=== PATIENT | female | born 1955 | race Hispanic/Latino ===

== ENCOUNTER 2018-11-27 11:27 | Emergency (ER) | payer SELFPAY ==
[~2018-11-27 11:27] MED LIST: ISOVUE-370 76%-LOCM 1 ML ONE
[2018-11-27 12:10] LABS: Bacteria/HPF 4+ HPF (None Seen); RBC/HPF 0-3 HPF (0-3); WBC/HPF 21-50 HPF (0-3)
[2018-11-27 12:11] LABS: Bilirubin Small (Negative); Blood, Urine Large (Negative); Glucose, Urine (Dipstick) Negative (Negative); Leukocyte Negative (Negative); Nitrite Positive (Negative); Pathc Cast-AUWi Flag 13.19 (0-2.49); Protein, Urine (Dipstick) 100 mg/dL (Neg-Trace); Urobilinogen 0.2 mg/dL (0.2-1.0); pH, Urine 5.5 (5.0-9.0)
[2018-11-27 12:12] LABS: #Monocytes 0.8 thou/uL (0.11-0.59); #Neutrophils 11.2 thou/uL (1.40-6.50); %Basophils 0.1 % (0.0-1.0); %Eosinophils 0.2 % (0.0-10.0); %Lymphocytes 7.3 % (21.0-51.0); %Monocytes 5.9 % (0.0-10.0); %Neutrophils 86.4 % (42.0-75.0); Hemoglobin 14.9 g/dL (12.0-16.0); Mean Corpuscular HGB CONC 33.9 g/dL (32.0-36.0); Mean Corpuscular Hemoglobin 32.2 pg (27.0-31.0); Mean Platelet Volume 8.2 fL (7.4-10.4); Platelet Count 235 thou/uL (130-400); RBC Distribution Width 12.2 % (11.5-14.5); Red Blood Cell (RBC) Count 4.63 mill/uL (4.20-5.40); White Blood Cell (WBC) Count 12.9 thou/uL (4.8-10.8)
[2018-11-27 12:12] LABS: Clarity Hazy (Clear)
[2018-11-27 12:13] LABS: Specific Gravity, Urine 1.025 (1.002-1.036)
[2018-11-27 12:14] LABS: Squamous Epithelial 0-3 HPF (0-3)
[2018-11-27 12:15] LABS: Crystals/HPF 1+ CA OXALATE HPF (Negative); Hyaline Casts/LPF 7-10 HYALINE CAST LPF (0-3 Hyaline); Other Microscopic Description Less than 2 mL rec'd
[2018-11-27 12:32] LABS: ALT (SGPT) 40 U/L (8-55); AST (SGOT) 32 U/L (5-34); Alkaline Phosphatase 92 U/L (40-150); Anion Gap 15 mmol/L (10-20); BUN (Urea Nitrogen) 20 mg/dL (9.8-20.1); Bilirubin, Total 0.5 mg/dL (0.2-1.2); Calc. Creatinine Clearance 0 mL/min (70-130); Calcium 10.2 mg/dL (7.8-10.44); Carbon Dioxide 28 mmol/L (23-31); Chloride 102 mmol/L (98-107); Estimated GFR-MDRD 58; Globulin 3.5 g/dL (2.4-3.5); Glucose 144 mg/dL (80-115); Potassium 3.8 mmol/L (3.5-5.1); Protein, Total 8.5 g/dL (6.0-8.3); Sodium 141 mmol/L (136-145)
[2018-11-27] MEDS ORDERED: Ondansetron PF 4 MG/2 ML Vial ONE ×2 (12:47→12:54)
[2018-11-27] MEDS ORDERED: Ketorolac Tromethamine 30 MG/ML VIAL ONE ×2 (12:47→12:54)
--- NOTE | 2018-11-27 14:14 | CT ---
CT ABDOMEN AND PELVIS WITH CONTRAST: Date: 11/27/18 COMPARISON: None. HISTORY: Left lower quadrant cramping and abdominal pain. TECHNIQUE: Multiple contiguous axial images were obtained in a CT of the abdomen and pelvis with contrast. Coron al reformats were performed. FINDINGS: There is moderate left hydronephrosis and hydroureter. There is a 4 mm calcification in the left uret erovesical junction. No right-sided hydronephrosis is seen. No calcifications are seen in either kidn ey. There are well circumscribed, nonenhancing hypodensities in the liver measuring up to 9.0 cm in size, which represent cysts. The gallbladder, adrenal glands, spleen, and pancreas are unremarkable. No free air, free fluid, or stranding changes are seen in the abdomen or pelvis. The large and small bowel are unremarkable. The appendix is normal. There is a 5.9 cm cyst in the left adnexa which likely represents a left ovarian cyst/follicle. There is a calcification along the superior aspect of the uterus which may represent a calcified fibroid. No abdominal or pelvic lymphadenopathy seen. Degenerative changes are seen in the spine. The visualized inferior thorax and abdominal wall soft ti ssues are unremarkable. IMPRESSION: 1. Left distal ureteral calcification with moderate left hydronephrosis. 2. Left ovarian cyst/follicle. 3. Hepatic cysts. POS: [facility]
[2018-11-27] MEDS ORDERED: cefTRIAXone\\ROCEPHIN 2 GM VIAL ONE (14:24)
== END 2018-11-27 16:36 | disposition home or self-care (01) ==
LOC: ERS 11:27
DX: N20.0 Calculus of kidney (principal); N30.00 Acute cystitis without hematuria
CPT/HCPCS: 36415; 74177; 80053; 81003; 81015; 85025; 87804; 96365; 96375; J0696; J1885; J2405; Q9966

== ENCOUNTER 2018-11-30 22:04 | Inpatient (IN) | payer SELFPAY ==
[2018-11-30] MEDS ORDERED: Morphine 4 MG/ML VIAL ONE (22:31)
[2018-11-30] MEDS ORDERED: Ondansetron PF 4 MG/2 ML Vial ONE (22:31)
[2018-11-30 22:33] LABS: Bilirubin Negative (Negative); Blood, Urine Moderate (Negative); Clarity CLOUDY (Clear); Glucose, Urine (Dipstick) Negative (Negative); Leukocyte Negative (Negative); Nitrite Negative (Negative); Protein, Urine (Dipstick) Trace mg/dL (Neg-Trace); Specific Gravity, Urine 1.022 (1.002-1.036); Urobilinogen 0.2 mg/dL (0.2-1.0)
[2018-11-30 22:36] LABS: Bacteria/HPF None Seen HPF (None Seen); Hyaline Casts/LPF 4-6 HYALINE CAST LPF (0-3 Hyaline); Pathc Cast-AUWi Flag 1.76 (0-2.49)
[2018-11-30 22:44] LABS: #Eosinphils 0.1 thou/uL (0.0-0.7); #Lymphocytes 1.5 thou/uL (1.20-3.40); #Monocytes 0.6 thou/uL (0.11-0.59); #Neutrophils 10.3 thou/uL (1.40-6.50); %Basophils 0.3 % (0.0-1.0); %Eosinophils 0.4 % (0.0-10.0); %Lymphocytes 11.9 % (21.0-51.0); %Monocytes 4.8 % (0.0-10.0); %Neutrophils 82.6 % (42.0-75.0); Hemoglobin 13.3 g/dL (12.0-16.0); Mean Corpuscular HGB CONC 33.9 g/dL (32.0-36.0); Mean Corpuscular Hemoglobin 32.4 pg (27.0-31.0); Mean Corpuscular Volume 95.7 fL (78.0-98.0); Mean Platelet Volume 8.9 fL (7.4-10.4); Platelet Count 225 thou/uL (130-400); RBC Distribution Width 11.9 % (11.5-14.5); Red Blood Cell (RBC) Count 4.09 mill/uL (4.20-5.40); White Blood Cell (WBC) Count 12.5 thou/uL (4.8-10.8)
[2018-11-30] MEDS ORDERED: Acetaminophen 325 MG/10.15 ML UDCUP ONE (22:45)
[2018-11-30 22:48] LABS: Crystals/HPF 1+ CA OXALATE HPF (Negative)
[2018-11-30 23:04] LABS: ALT (SGPT) 33 U/L (8-55); AST (SGOT) 23 U/L (5-34); Albumin 4.2 g/dL (3.4-4.8); Alkaline Phosphatase 79 U/L (40-150); Anion Gap 18 mmol/L (10-20); BUN (Urea Nitrogen) 25 mg/dL (9.8-20.1); Bilirubin, Total 0.5 mg/dL (0.2-1.2); Calc. Creatinine Clearance 0 mL/min (70-130); Calcium 9.4 mg/dL (7.8-10.44); Carbon Dioxide 21 mmol/L (23-31); Chloride 103 mmol/L (98-107); Estimated GFR-MDRD 56; Globulin 2.9 g/dL (2.4-3.5); Glucose 166 mg/dL (80-115); Lipase 24 U/L (8-78); Potassium 3.6 mmol/L (3.5-5.1); Protein, Total 7.1 g/dL (6.0-8.3); Sodium 138 mmol/L (136-145)
--- NOTE | 2018-11-30 23:05 | CT ---
NONCONTRAST ENHANCED CT IMAGES ABDOMEN AND PELVIS 11/30/18 HISTORY: Abdominal pain. Noncontrast enhanced CT images of the abdomen and pelvis demonstrate the lung bases to be unremarkabl e. No evidence of free intraperitoneal air seen. The liver contains numerous hypodense areas most compatible with hepatic cysts. The spleen is unremar kable. The pancreas is unremarkable. The gallbladder is unremarkable. There is mild diffuse thickening of the colon involving the ascending, transverse and descending colo n compatible with colitis. A normal appendix is visualized. The small bowel is unremarkable. The right kidney is unremarkable. The left kidney demonstrates mild to moderate hydroureteronephrosis. The more distal aspect of the ur eter is more dilated. There is a 6.2 mm left distal ureteral calculus at the left ureterovesicular ju nction resulting in proximal left sided hydroureteronephrosis. There is a large left ovarian cyst or cystic lesion measuring up to 6.4 cm. IMPRESSION: 1. Obstructing distal left ureteral calculus. 2. Large left ovarian cyst or cystic lesion. 3. Extensive colonic thickening concerning for colitis. POS: [facility]
[2018-11-30] MEDS ORDERED: Piperacillin/Tazobactam 3.375 GM VIAL ONE (23:16)
[2018-11-30 23:24] LABS: Lactic Acid 1.2 mmol/L (0.5-2.2)
--- NOTE | 2018-11-30 23:45 | ULT ---
PELVIC ULTRASOUND 11/30/18 HISTORY: Evaluate for torsion. Multiple longitudinal and transverse images of the pelvis is obtained using a multihertz endovaginal transducer. Real time, color flow, and spectral waveform Doppler analysis demonstrates visualization of the right ovary which measures 3.0 x 1.9 x 2.0 cm. No evidence of right ovarian mass is seen. The left ovary contains several large cysts. Overall three dimensional measurement of the left ovary measures 6.0 x 4.1 x 6.7 cm. The largest of the left ovarian cyst measures 5.4 x 3.3 x 5.9 cm. Blood flow not visible in the left ovary. Findings concerning for possible ovarian torsion. The uterus measures 7.3 x 3.1 x 4.4 cm. The endometrium has double wall thickness of 1.2 cm. IMPRESSION: Large left ovarian cyst or cystic lesions. Blood flow not able to be documented in the left ovary. Ov acosta torsion cannot be excluded. POS: [facility]
--- NOTE | 2018-11-30 23:51 | PDOC.EVN ---
Event Note - Event Note Event Note: OBGYN Faculty Informal consult (phone call) with ED Resident at 2343 Patient in ED admitted to Medicine HPI: 63 yo postmenopusal patient with left lower quadrant pain. She was recently diagnosed with renal stones Thrusday. I was consulted as the patient was found to have a 5.3 cm left ovarian cyst on pelvic sono with unclear flow to left ovary. Medical condition complicated by diverticulitis and left renal stone at the ureterovesiclar junction. Past med HX: Neg Surg HX: BTL CBC with wbc 12, HCT 39; CMP wnl, GLUC 166; cr normal I was asked if surgery was to be considered for the left ovarian cyst with unclear flow. As the patient also has diverticulitis and is passing stone on the left, unclear which source is causing her discomfort at this time. As for the ovary, I recommended re-image in 24 hours if not better to see if pain resolves with the passing stone. As she is 63 yo with other conditions likely influencing the pain, I am unsure if laparaoscopy right now would be indicated. Ovarian torsion may occur at any age, but is less likely in postmenopusal women. Recommend reimage/sono if not better after stone passage.
[2018-12-01] MEDS ORDERED: Morphine 4 MG/ML VIAL ONE (00:04)
[2018-12-01] MEDS ORDERED: Ondansetron PF 4 MG/2 ML Vial ONE (00:05)
[2018-12-01] MEDS ORDERED: Ondansetron PF 4 MG/2 ML Vial IVP PRN (00:46)
[2018-12-01] MEDS ORDERED: Acetaminophen 325 MG TAB PO PRN (00:46)
[2018-12-01] MEDS ORDERED: Ondansetron ODT 4 MG TAB PO PRN (00:46)
[2018-12-01] MEDS ORDERED: cloNIDine 0.1 MG TAB PO PRN (00:51)
[2018-12-01] MEDS: Sodium Chloride 0.9% 1,000 ML IV SCH ×5 (02:12→18:02)
--- NOTE | 2018-12-01 02:33 | HP ---
CHIEF COMPLAINT: Abdominal pain. HISTORY OF PRESENT ILLNESS: This patient is a 63-year-old female, who presented here to the emergency department on 11/27/2018, complaining of left lower abdominal pain. The patient describes the pain as sharp and radiating to her back. At that time, the patient underwent a CT scan of the abdomen and pelvis, which revealed a left ureteral stone with hydronephrosis. She also had left ovarian cyst identified at 5.9 cm. Further workup indicated evidence of urinary tract infection with white count of 12.9, and urinalysis showing positive nitrites but negative leukocyte esterase, 21 to 50 white cells, 4+ bacteria, and calcium oxalate noted. The patient subsequently was discharged with oral antibiotics, specifically Cipro and Tylenol No. 3, Zofran, and ibuprofen. The patient reports that her pain initially got better but then became more severe. She states the pain was 20/10, but states it is better now after morphine and it is down to 10/10. She is incapable of standing upright because it exacerbates the pain. Bending forward a bit seems to help. She also reports that she feels like she needs to void constantly, but is unable to do so frequently. REVIEW OF SYSTEMS: She has had some chills. She is equivocal on fevers. She has had significant diarrhea that started prior to her visit on and she has had associated nausea and vomiting. All other systems reviewed and all pertinent positives and negatives noted in history of present illness. PAST MEDICAL HISTORY: None. The patient reports that she has followed her blood pressure randomly at the store and it has always been normal and she believes it is only high here today because of her pain. PAST SURGICAL HISTORY: Tubal ligation. FAMILY HISTORY: Diabetes and hypertension. SOCIAL HISTORY: The patient drinks socially a couple of times a week. No tobacco. She lives with her common-law . She is full code and her sisters would be her surrogate decision makers. CURRENT MEDICATIONS: The patient is on no chronic medications. She was again given, 1. Tylenol No. 3. 2. Cipro. 3. Zofran. 4. Ibuprofen, on . PHYSICAL EXAMINATION: VITAL SIGNS: Blood pressure was 165/100 up to 188/106, pulse 73, respirations 18, O2 saturation 95% on 2 L. She was previously 100% on room air on presentation. GENERAL APPEARANCE: Age-appropriate female, in no distress. She is a bit sedated after receiving morphine, but she is capable of having conversation. HEENT: Pupils are reactive and equal. She has no OP lesions. HEART: Regular rate and rhythm without murmurs, gallops, or rubs. LUNGS: Clear to auscultation bilaterally with good chest wall expansion and air exchange. HEART: Regular rate and rhythm. No murmurs, gallops, or rubs. NECK: She has no JVD. ABDOMEN: Soft, nondistended. Positive bowel sounds. She is tender in the left lower quadrant and left pelvic area with modest voluntary guarding. No rebound. EXTREMITIES: Have no cyanosis, clubbing, or edema. SKIN: Warm and dry. NEUROLOGIC: She appears to be fully intact. LABORATORY DATA AND DIAGNOSTIC STUDIES: White count 12.5, hemoglobin 13.3, and platelets 225. Sodium 138, potassium 3.6, chloride 103, CO2 of 21, BUN 25, creatinine 1.01, glucose 166. Urinalysis shows moderate blood, ketones, 7 to 10 red cells, 4 to 6 white cells, 11 to 20 epithelial cells, calcium oxalate crystals present as well as hyaline cast. Repeat CT abdomen and pelvis shows a persistent obstructing left ureteral calculus, left ovarian cyst at 6.2 cm. There is also mild diffuse thickening of the colon in the ascending, transverse, and descending regions, compatible with colitis. There is [id number] left hydronephrosis. It appears that the stone is at the left UVJ. Pelvic ultrasound shows several cystic lesions and blood flow to the left ovary is not visualized concerning for possible ovarian torsion. IMPRESSION AND PLAN: 1. Left lower quadrant abdominal pain with associated white count, nausea, vomiting, and diarrhea. Her workup reveals several potential possibilities including left ureteral stone with hydroureter, potential colitis, and left ovarian cyst with possible ovarian torsion. The patient has already been evaluated by Gynecology. We will treat the patient symptomatically for the pain, give p.r.n. antiemetics, and will cover with antibiotics, specifically we will continue the Zosyn that was started in the emergency department. 2. Left ureterolithiasis with left hydroureter. We will aggressively hydrate. Treat with pain medications. Start tamsulosin and consult Urology. 3. Possible colitis covering with Zosyn. Given the nature of the patient's symptoms, this seems to be a less likely source of her symptoms. 4. Left ovarian cyst with possible torsion. Gynecology recommends reimaging after the stone has passed or within 24 hours. 5. Elevated blood pressure. The patient does not carry a history of hypertension, but her blood pressure has been fairly elevated here. We will continue to watch closely now that her pain has been treated with the morphine and she seems to be getting better. We will give p.r.n. antihypertensive as well. Job ID: [id number] [facility]
[2018-12-01] MEDS: Morphine 2 MG/ML SYRINGE SLOW IVP PRN ×2 (03:08→07:24)
[2018-12-01] MEDS: Piperacillin/Tazobactam 3.375 GM in Sodium Chloride 0.9% 100 ML IVPB SCH ×4 (05:57→23:22)
[2018-12-01] MEDS: Tamsulosin HCl 0.4 MG CAP PO SCH (07:29)
[2018-12-01] MEDS: Enoxaparin Sodium 40 MG/0.4 ML SYRINGE SC SCH (07:29)
--- NOTE | 2018-12-01 08:29 | PDOC.EVN ---
Event Note - Event Note Event Note: Consult (OUTSIDE DELIVERER) 12/01/18 Patient seen at 0820 Requesting MD: Maikel Reason: Left Ov 6cm cyst HPI: Pleasant 63 yo postmenopuasal admitted this AM with LAP (please see my prior note). No past med HX..CT shows colitis globally and there is a 6mm left renal stone at ureteral vesical junction. Colitis is new finding from last eval which was last week Review of Systems: pos for LAP bilaterally, some left back pain Past Med: neg Past surg HX: neg meds: none Allergies: none PHYSICAL: VSS afebrile NAD abd soft and nonsurgical Pelvic differed Imagincm left ov cyst; 6mm stone left ureter, colitis Assessment and plan: Postmenopusal patient with various causes for pelvic pain Plan: 1. c;lose follow up of OV cyyst 2. Do not suspect torsion at this time clinically...but will follow SXS 3. Definitely needs outpatient follow up of ov cyst...this was reviewed with her case discussed with oncoming OBGYN
[2018-12-01] MEDS ORDERED: Diabetic Tussin 200 MG/10 ML UDCUP PO PRN (08:33)
[2018-12-01] MEDS ORDERED: HYDROcodone/Acetaminophen 5/325 mg Tablet PO PRN ×3 (08:33→09:19)
[2018-12-01] MEDS ORDERED: Bisacodyl 10 MG SUPP PR PRN (08:33)
[2018-12-01] MEDS ORDERED: Cepastat Lozenges 1 LOZ PO PRN (08:33)
[2018-12-01] MEDS ORDERED: Sodium Chloride 0.65% Nasal 44 ML BOT EA NARE PRN (08:33)
[2018-12-01] MEDS ORDERED: Eucerin (Mineral Oil/Petrolatum,White) 30 gm Jar TOP PRN (08:33)
[2018-12-01] MEDS ORDERED: Zolpidem Tartrate 5 MG TAB PO PRN (08:33)
[2018-12-01] MEDS ORDERED: Senokot S 8.6-50 MG TAB PO PRN (08:33)
[2018-12-01] MEDS ORDERED: hydrALAZINE 20 MG/ML VIAL SLOW IVP PRN (08:33)
[2018-12-01] MEDS ORDERED: Artificial Tears 18 DROP/0.9 ML EA EYE PRN (08:33)
[2018-12-01] MEDS ORDERED: Loratadine 10 MG TAB PO PRN (08:33)
[2018-12-01] MEDS ORDERED: Calcium Carbonate 500 MG ChewTAB PO PRN (08:33)
[2018-12-01] MEDS ORDERED: Loperamide HCl 2 MG CAP PO PRN (08:33)
[2018-12-01] MEDS ORDERED: Morphine 2 MG/ML SYRINGE SLOW IVP PRN (09:18)
[2018-12-01] MEDS ORDERED: Ketorolac Tromethamine 30 MG/ML VIAL IVP PRN (09:20)
[2018-12-01] MEDS: Saccharomyces boulardii 250 MG CAP PO SCH (09:26)
--- NOTE | 2018-12-01 10:36 | PDOC.PN ---
- Subjective Encounter Start Date: 12/01/18 Encounter Start Time: 07:20 -: old records requested/rev Patient seen and examined. No new complaints. No overnight events - Objective Resuscitation Status - Order Detail: 12/01/18 00:46 Resuscitation Status Routine Resuscitation Status: FULL: Full Resuscitation MAR Reviewed: Yes Vital Signs & Weight: Vital Signs (12 hours) Temp Pulse Resp BP Pulse Ox 12/01/18 10:00 76 20 127/68 100 12/01/18 09:37 99.1 F 77 15 149/85 H 94 L 12/01/18 07:47 98.9 F 72 20 168/81 H 96 12/01/18 03:45 85 20 178/92 H 93 L 12/01/18 02:00 98.1 F 91 24 H 189/86 H 94 L Weight Weight 189 lb 9.561 oz I&O: 11/30/18 12/01/18 12/02/18 06:59 06:59 06:59 Intake Total 525 Output Total 1000 Balance -475 Result Diagrams: 11/30/18 22:33 11/30/18 22:33 Radiology Reviewed by me: Yes EKG Reviewed by me: Yes Phys Exam - Physical Examination Constitutional: NAD HEENT: PERRLA, moist MMs, sclera anicteric Neck: no JVD, supple Respiratory: no wheezing, no rales, no rhonchi Cardiovascular: RRR, no significant murmur, no rub Gastrointestinal: soft, no distention, positive bowel sounds left flank pain Musculoskeletal: no edema, pulses present Neurological: non-focal, normal sensation, moves all 4 limbs Lymphatic: no nodes Psychiatric: normal affect, A&O x 3 Skin: no rash, normal turgor Dx/Plan (1) Acute colitis Code(s): K52.9 - NONINFECTIVE GASTROENTERITIS AND COLITIS, UNSPECIFIED Status : Acute (2) Hydroureteronephrosis Code(s): N13.30 - UNSPECIFIED HYDRONEPHROSIS Status: Acute (3) Left ureteral calculus Code(s): N20.1 - CALCULUS OF URETER Status: Acute (4) Ovarian cyst, left Code(s): N83.202 - UNSPECIFIED OVARIAN CYST, LEFT SIDE Status: Acute (5) Obesity (BMI 30.0-34.9) Code(s): E66.9 - OBESITY, UNSPECIFIED Status: Chronic - Plan cont current plan of care, plan discussed w/ family, continue antibiotics * send stool studies if diarrhoea * urology consulted * add toradol for pain control * change mrophin q 2 hourly * medication reviewed as below * symptomatic treatment * follow culture * will need cysto. Review of Systems - Review of Systems ENT: negative: Ear Pain, Ear Discharge, Nose Pain, Nose Discharge, Nose Congestion, Mouth Pain, Mouth Swelling, Throat Pain, Throat Swelling, Other Cardiovascular: negative: chest pain, palpitations, orthopnea, paroxysmal nocturnal dyspnea, edema, light headedness, other Gastrointestinal: negative: Nausea, Vomiting, Abdominal Pain, Diarrhea, Constipation, Melena, Hematochezia, Other Genitourinary: negative: Dysuria, Frequency, Incontinence, Hematuria, Retention , Other Musculoskeletal: Back Pain. negative: Neck Pain, Shoulder Pain, Arm Pain, Hand Pain, Leg Pain, Foot Pain, Other Skin: negative: Rash, Lesions, Ronaldo, Bruising, Other - Medications/Allergies Allergies/Adverse Reactions: Allergies Allergy/AdvReac Type Severity Reaction Status Date / Time No Known Allergies Allergy Unverified 12/01/18 00:50 Medications: Current Medications Acetaminophen (Tylenol) 650 mg PO Q4H PRN PRN Reason: Headache/Fever/Mild Pain (1-3) Hydrocodone Bitart/Acetaminophen ([place] 5/325) 1 tab PO Q4H PRN PRN Reason: Moderate Pain (4-6) Artificial Tears (Tears Naturale) 2 drop EA EYE PRN PRN PRN Reason: Dry Eyes Bisacodyl (Dulcolax) 10 mg HI DAILYPRN PRN PRN Reason: Constipation Calcium Carbonate (Tums) 1,000 mg PO Q4H PRN PRN Reason: Heartburn or Indigestion Clonidine (Catapres) 0.1 mg PO Q4H PRN PRN Reason: Hypertension Enoxaparin Sodium (Lovenox) 40 mg SC 0900 KRISTAL Last Admin: 12/01/18 07:29 Dose: Not Given Guaifenesin (Robitussin Sf) 200 mg PO Q4H PRN PRN Reason: Cough Hydralazine HCl (Apresoline) 10 mg SLOW IVP Q4H PRN PRN Reason: SBP > 180 and HR < 70 Sodium Chloride (Normal Saline 0.9%) 1,000 mls @ 150 mls/hr IV .Q6H40M [facility] Last Admin: 12/01/18 09:34 Dose: 1,000 mls Piperacillin Sod/Tazobactam (Sod 3.375 gm/ Sodium Chloride) 100 mls @ 200 mls/ hr IVPB Q6HR [facility] Last Admin: 12/01/18 05:57 Dose: 100 mls Ketorolac Tromethamine (Toradol) 15 mg IVP Q6H PRN PRN Reason: Pain Stop: 12/06/18 09:21 Last Admin: 12/01/18 09:29 Dose: 15 mg Loperamide HCl (Imodium) 2 mg PO PRN PRN PRN Reason: Diarrhea/Loose Stools Loratadine (Claritin) 10 mg PO DAILYPRN PRN PRN Reason: Sinus Symptoms Mineral Oil/White Petrolatum (Eucerin Cream) 0 gm TOP BIDPRN PRN PRN Reason: Dry Skin Morphine Sulfate (Morphine) 2 mg SLOW IVP Q2H PRN PRN Reason: Moderate to Severe Pain (6-10) Last Admin: 12/01/18 09:29 Dose: 2 mg Ondansetron HCl (Zofran Odt) 4 mg PO Q6H PRN PRN Reason: Nausea/Vomiting Ondansetron HCl (Zofran) 4 mg IVP Q6H PRN PRN Reason: Nausea/Vomiting Saccharomyces Boulardii (Florastor) 250 mg PO DAILY [facility] Last Admin: 12/01/18 09:26 Dose: Not Given Senna/Docusate Sodium (Senokot S) 2 tab PO BID PRN PRN Reason: Constipation Sodium Chloride (Flush - Normal Saline) 10 ml IVF Q12HR [facility] Last Admin: 12/01/18 07:29 Dose: Not Given Sodium Chloride (Flush - Normal Saline) 10 ml IVF PRN PRN PRN Reason: Saline Flush Sodium Chloride ([place] Nasal [place] 0.65%) 0 ml EA NARE QIDPRN PRN PRN Reason: Nasal Congestion Tamsulosin HCl (Flomax) 0.4 mg PO DAILY [facility] Last Admin: 12/01/18 07:29 Dose: Not Given Throat Lozenges (Cepastat Lozenges) 1 lazaro PO Q2H PRN PRN Reason: Sore Throat Zolpidem Tartrate (Ambien) 5 mg PO HSPRN PRN PRN Reason: Insomnia
[2018-12-01] MEDS: traMADol HCl 50 MG TAB PO PRN ×3 (13:45→20:42)
--- NOTE | 2018-12-01 16:52 | CON ---
DATE OF CONSULTATION: 12/01/2018 REASON FOR CONSULTATION: Consultation was requested for ureteral stone. HISTORY OF PRESENT ILLNESS: The patient is a 63-year-old female, who was seen on the and noted to have an obstructing ureteral stone with UTI, but sent out on antibiotics. I do not believe Urology was consulted at that time. She returned on the for further pain, nausea, and vomiting, but also had concerns for a left ovarian cyst versus left ovarian torsion, and Gynecology was involved, and have opted to follow up as an outpatient. Normally, she has frequency q.1-2 h. nocturia x1. She denies any hesitancy, weak stream, straining, incomplete emptying, or leakage. She does have some urgency as she is aging, but does not wear any pads or liners for any significant leakage. She has never had gross hematuria, prior kidney stones, and was not aware of any urinary tract infection when she was originally seen on the . She denies any cloudy or malodorous urine. She does not have any burning. She has had urine infections before, but greater than 20 years ago. When she was sent on the antibiotics, her symptoms did improve, when she was pain-free for approximately 1-2 days before the pain returned with back pain radiating down to the front and vice versa. PAST MEDICAL HISTORY: She denies any hypertension and her blood pressure has improved. PAST SURGICAL HISTORY: None other than a tubal. PAST MIGRATION AGENT HISTORY: Vaginal delivery x1 and the tubal. REVIEW OF SYSTEMS: She never had a colonoscopy nor a mammogram. She does do self exams. She had a Pap smear remotely, that was normal. She does not usually see a doctor. She does check her blood pressure at local stores and has been noted to be WNL. She has had subjective fevers and chills with nausea and vomiting as well as dry heaves. She denies any chest pain, shortness of breath, or cough. +diarrhea even before being given abx--this was new. SOCIAL HISTORY: She smoked socially for 5 or 10 years, but quit greater than 35 to 40 years ago. She does not use any recreational drugs. She drinks twice a week , usually use 1 or 2 at most of the time. MEDICATIONS: None daily, but when she was discharged on the , she was sent out on Cipro with Tylenol No. 3. ALLERGIES: NONE. FAMILY HISTORY: Mom at 62 of an aneurysm. Father in the 70s of heart attack. Neither had stones nor cancer. PHYSICAL EXAMINATION: GENERAL: She is comfortable in the bed. VITAL SIGNS: T-max 99.1, blood pressure 127/68 and previously up to 176/72, heart rate 76, and saturating 100% on room air. She had a liter output from the urine as last recorded. NECK: She has no JVD. HEENT: She has no scleral icterus. She has no jaundice. She has no diaphoresis. HEART: Regular rate and rhythm. No murmurs, gallops, or rubs. LUNGS: Clear to auscultation bilaterally. ABDOMEN: Soft, nondistended, and nontender with normoactive bowel sounds. She had no CVA tenderness on either side. She had no lower extremity edema. VULVA: Deferred at this time. LABORATORY EVALUATION: White count of 12.5, hemoglobin and hematocrit 13.3 and 39.2. BUN and creatinine 25 and 1.01. Urinalysis from the ; 4-6 wbc's, 7- 10 rbc's, no bacteria, 11-20 squamous cells with 1+ calcium oxalate crystals. Urinalysis from the showed 21-50 wbc's, 0-3 RBCs, 4+ bacteria 0-3 squamous cells with no culture sent, but she was sent out on Cipro. CT (11/27/18) with contrast was reviewed personally and revealed mild left hydronephrosis down to and 5 x 4 obstructing left UVJ stone that was . There was no right-sided stones. No right-sided hydronephrosis. The bladder appeared normal. CT (11/30/2018 without contrast, reviewed personally, revealed the same stone, but now NO contrast remaining, so confirming complete/persistent obstruction not present , but hydronephrosis was still present and slightly increased. ASSESSMENT: A 63-year-old female with an obstructing stone and urinary tract infection, who went out on antibiotics and returned due to pain. She also has a presumed adnexal cyst, confounding the issue, but it is likely incidental at this point. We reviewed how infected and obstructed stones can lead to systemic illness rapidly and in a severe fashion, but unfortunately, her infection has been adequately treated as she is only partially obstructed and no further contrast remains from the CT scan, but the stone unfortunately has not moved to all over that, so we reviewed doing ureteroscopy with holmium laser lithotripsy to get the stone out, leaving a stent placed temporarily, and the small risks that I would not be able to place a stent and require percutaneous nephrostomy tube instead, and reviewed how it is safe to proceed with stone intervention as opposed to just the stent. Given that her infection does appear to have been adequately treated, we also reviewed stone prevention and will review this more as an outpatient. Risks and benefits to the procedure were reviewed in detail. Unless she passes the stone overnight, we will plan to do this tomorrow morning and she should be n.p.o. and continue the antibiotics that she is on currently. Job ID: [id number] [facility]
[2018-12-02] MEDS: traMADol HCl 50 MG TAB PO PRN ×2 (00:15→20:13)
[2018-12-02] MEDS: Sodium Chloride 0.9% 1,000 ML IV SCH ×3 (03:29→18:04)
[2018-12-02 04:33] LABS: #Eosinphils 0.2 thou/uL (0.0-0.7); #Lymphocytes 2.7 thou/uL (1.20-3.40); #Monocytes 0.8 thou/uL (0.11-0.59); #Neutrophils 4.3 thou/uL (1.40-6.50); %Basophils 0.5 % (0.0-1.0); %Eosinophils 2.1 % (0.0-10.0); %Lymphocytes 33.3 % (21.0-51.0); %Monocytes 9.9 % (0.0-10.0); %Neutrophils 54.3 % (42.0-75.0); Hemoglobin 11.3 g/dL (12.0-16.0); Mean Corpuscular HGB CONC 32.9 g/dL (32.0-36.0); Mean Corpuscular Hemoglobin 32.1 pg (27.0-31.0); Mean Corpuscular Volume 97.4 fL (78.0-98.0); Mean Platelet Volume 8.8 fL (7.4-10.4); Platelet Count 188 thou/uL (130-400); RBC Distribution Width 12.1 % (11.5-14.5); Red Blood Cell (RBC) Count 3.53 mill/uL (4.20-5.40)
[2018-12-02 04:49] LABS: ALT (SGPT) 31 U/L (8-55); AST (SGOT) 23 U/L (5-34); Albumin 3.5 g/dL (3.4-4.8); Alkaline Phosphatase 67 U/L (40-150); Anion Gap 10 mmol/L (10-20); BUN (Urea Nitrogen) 12 mg/dL (9.8-20.1); Bilirubin, Total 0.6 mg/dL (0.2-1.2); Calc. Creatinine Clearance 88 mL/min (70-130); Carbon Dioxide 27 mmol/L (23-31); Chloride 105 mmol/L (98-107); Estimated GFR-MDRD 63; Globulin 2.3 g/dL (2.4-3.5); Glucose 103 mg/dL (80-115); Protein, Total 5.8 g/dL (6.0-8.3); Sodium 139 mmol/L (136-145)
[2018-12-02] MEDS: Piperacillin/Tazobactam 3.375 GM in Sodium Chloride 0.9% 100 ML IVPB SCH ×3 (05:42→17:13)
[2018-12-02] MEDS ORDERED: Ondansetron PF 4 MG/2 ML Vial ONE ×2 (09:42→14:09)
[2018-12-02] MEDS ORDERED: Morphine 2 MG/ML SYRINGE ONE (09:42)
[2018-12-02] MEDS ORDERED: Fentanyl 100 MCG/2 ML VIAL ONE (10:33)
[2018-12-02] MEDS ORDERED: Iothalamate Meglumine 60% 50 ML VIAL FS ONE ×2 (10:37→11:11)
[2018-12-02] MEDS: Saccharomyces boulardii 250 MG CAP PO SCH (11:39)
[2018-12-02] MEDS: Tamsulosin HCl 0.4 MG CAP PO SCH (11:39)
[2018-12-02] MEDS: Enoxaparin Sodium 40 MG/0.4 ML SYRINGE SC SCH (11:39)
[2018-12-02 11:59] LABS: Bilirubin Negative (Negative); Blood, Urine Moderate (Negative); Clarity CLOUDY (Clear); Glucose, Urine (Dipstick) Negative (Negative); Leukocyte Negative (Negative); Nitrite Negative (Negative); Protein, Urine (Dipstick) Negative (Neg-Trace); Specific Gravity, Urine 1.004 (1.002-1.036); Urobilinogen 0.2 mg/dL (0.2-1.0)
[2018-12-02] MEDS ORDERED: Ondansetron HCl/PF 4 MG/2 ML Vial IVP PRN (12:00)
[2018-12-02] MEDS ORDERED: Promethazine HCl 25 MG/ML VIAL IM PRN (12:00)
[2018-12-02] MEDS ORDERED: Promethazine HCl 25 MG/ML VIAL SLOW IVP PRN (12:00)
[2018-12-02 12:01] LABS: Bacteria/HPF None Seen HPF (None Seen); Hyaline Casts/LPF 0-3 HYALINE CAST LPF (0-3 Hyaline); Pathc Cast-AUWi Flag 0.13 (0-2.49); Squamous Epithelial 0-3 HPF (0-3); WBC/HPF 0-3 HPF (0-3)
--- NOTE | 2018-12-02 12:05 | RAD ---
RETROGRADE IVP: 2 views presented from OR. INDICATION: Left ureteral stone. Intraoperative imaging. FINDINGS/IMPRESSION: Both views show placement of a left ureteral stent. Final image shows the left ureteral double pigtai l stent in place. POS: [facility]
--- NOTE | 2018-12-02 13:49 | PDOC.PN ---
- Subjective Encounter Start Date: 12/02/18 Encounter Start Time: 10:30 Patient seen and examined. No new complaints. No overnight events - Objective Resuscitation Status - Order Detail: 12/01/18 00:46 Resuscitation Status Routine Resuscitation Status: FULL: Full Resuscitation MAR Reviewed: Yes Vital Signs & Weight: Vital Signs (12 hours) Temp Pulse Resp BP Pulse Ox 12/02/18 13:00 98.0 F 68 18 136/82 91 L 12/02/18 12:30 97.7 F 96 16 125/87 96 12/02/18 06:55 98.2 F 77 16 145/80 H 92 L 12/02/18 03:26 98.5 F 68 16 124/63 94 L Weight Weight 189 lb 9.561 oz I&O: 12/01/18 12/02/18 12/03/18 06:59 06:59 06:59 Intake Total 525 Output Total 1000 900 Balance -475 -900 Result Diagrams: 12/02/18 04:05 12/02/18 04:05 Phys Exam - Physical Examination Constitutional: NAD HEENT: PERRLA, moist MMs, sclera anicteric Neck: no JVD, supple Respiratory: no wheezing, no rales, no rhonchi Cardiovascular: RRR, no significant murmur, no rub Gastrointestinal: soft, non-tender, no distention, positive bowel sounds Musculoskeletal: no edema, pulses present Neurological: non-focal, normal sensation Lymphatic: no nodes Psychiatric: normal affect, A&O x 3 Skin: no rash, normal turgor Dx/Plan (1) Acute colitis Code(s): K52.9 - NONINFECTIVE GASTROENTERITIS AND COLITIS, UNSPECIFIED Status : Acute (2) Hydroureteronephrosis Code(s): N13.30 - UNSPECIFIED HYDRONEPHROSIS Status: Acute (3) Left ureteral calculus Code(s): N20.1 - CALCULUS OF URETER Status: Acute (4) Ovarian cyst, left Code(s): N83.202 - UNSPECIFIED OVARIAN CYST, LEFT SIDE Status: Acute (5) Obesity (BMI 30.0-34.9) Code(s): E66.9 - OBESITY, UNSPECIFIED Status: Chronic - Plan cont current plan of care, plan discussed w/ family, continue antibiotics * continue zosyn * continue IVF at 100 ml per hour * continue flomax * pain controlled * today cystoscopy * medication reviewed as below * symptomatic treatment * expecting discharge tomorrow. Review of Systems - Review of Systems ENT: negative: Ear Pain, Ear Discharge, Nose Pain, Nose Discharge, Nose Congestion, Mouth Pain, Mouth Swelling, Throat Pain, Throat Swelling, Other Respiratory: negative: Cough, Dry, Shortness of Breath, Hemoptysis, SOB with Excertion, Pleuritic Pain, Sputum, Wheezing Cardiovascular: negative: chest pain, palpitations, orthopnea, paroxysmal nocturnal dyspnea, edema, light headedness, other Gastrointestinal: negative: Nausea, Vomiting, Abdominal Pain, Diarrhea, Constipation, Melena, Hematochezia, Other Genitourinary: negative: Dysuria, Frequency, Incontinence, Hematuria, Retention , Other Musculoskeletal: negative: Neck Pain, Shoulder Pain, Arm Pain, Back Pain, Hand Pain, Leg Pain, Foot Pain, Other - Medications/Allergies Allergies/Adverse Reactions: Allergies Allergy/AdvReac Type Severity Reaction Status Date / Time No Known Allergies Allergy Unverified 12/01/18 00:50 Medications: Current Medications Acetaminophen (Tylenol) 650 mg PO Q4H PRN PRN Reason: Headache/Fever/Mild Pain (1-3) Artificial Tears (Tears Naturale) 2 drop EA EYE PRN PRN PRN Reason: Dry Eyes Bisacodyl (Dulcolax) 10 mg MD DAILYPRN PRN PRN Reason: Constipation Calcium Carbonate (Tums) 1,000 mg PO Q4H PRN PRN Reason: Heartburn or Indigestion Clonidine (Catapres) 0.1 mg PO Q4H PRN PRN Reason: Hypertension Enoxaparin Sodium (Lovenox) 40 mg SC 0900 [facility] Last Admin: 12/02/18 11:39 Dose: Not Given Guaifenesin (Robitussin Sf) 200 mg PO Q4H PRN PRN Reason: Cough Hydralazine HCl (Apresoline) 10 mg SLOW IVP Q4H PRN PRN Reason: SBP > 180 and HR < 70 Sodium Chloride (Normal Saline 0.9%) 1,000 mls @ 150 mls/hr IV .Q6H40M [facility] Last Admin: 12/02/18 03:29 Dose: 1,000 mls Piperacillin Sod/Tazobactam (Sod 3.375 gm/ Sodium Chloride) 100 mls @ 200 mls/ hr IVPB Q6HR [facility] Last Admin: 12/02/18 12:38 Dose: 100 mls Loperamide HCl (Imodium) 2 mg PO PRN PRN PRN Reason: Diarrhea/Loose Stools Loratadine (Claritin) 10 mg PO DAILYPRN PRN PRN Reason: Sinus Symptoms Mineral Oil/White Petrolatum (Eucerin Cream) 0 gm TOP BIDPRN PRN PRN Reason: Dry Skin Morphine Sulfate (Morphine) 2 mg SLOW IVP Q2H PRN PRN Reason: Moderate to Severe Pain (6-10) Last Admin: 12/01/18 09:29 Dose: 2 mg Ondansetron HCl (Zofran Odt) 4 mg PO Q6H PRN PRN Reason: Nausea/Vomiting Ondansetron HCl (Zofran) 4 mg IVP Q6H PRN PRN Reason: Nausea/Vomiting Ondansetron HCl (Pacu-Zofran) 4 mg IVP ONE PRN PRN Reason: Nausea/Vomiting Stop: 12/02/18 15:00 Promethazine HCl (Pacu-Phenergan) 6.25 mg SLOW IVP ONE PRN PRN Reason: Nausea/Vomiting Stop: 12/02/18 15:00 Promethazine HCl (Pacu-Phenergan) 6.25 mg IM ONE PRN PRN Reason: Nausea/Vomiting Stop: 12/02/18 15:00 Saccharomyces Boulardii (Florastor) 250 mg PO DAILY [facility] Last Admin: 12/02/18 11:39 Dose: Not Given Senna/Docusate Sodium (Senokot S) 2 tab PO BID PRN PRN Reason: Constipation Sodium Chloride (Flush - Normal Saline) 10 ml IVF Q12HR [facility] Last Admin: 12/02/18 11:39 Dose: Not Given Sodium Chloride (Flush - Normal Saline) 10 ml IVF PRN PRN PRN Reason: Saline Flush Sodium Chloride ([place] Nasal [place] 0.65%) 0 ml EA NARE QIDPRN PRN PRN Reason: Nasal Congestion Tamsulosin HCl (Flomax) 0.4 mg PO DAILY [facility] Last Admin: 12/02/18 11:39 Dose: Not Given Throat Lozenges (Cepastat Lozenges) 1 lazaro PO Q2H PRN PRN Reason: Sore Throat Tramadol HCl (Ultram) 50 mg PO Q4H PRN PRN Reason: Mild-Moderate Pain (1-5) Last Admin: 12/01/18 16:42 Dose: 50 mg Tramadol HCl (Ultram) 100 mg PO Q4H PRN PRN Reason: Moderate to Severe Pain (6-10) Last Admin: 12/02/18 00:15 Dose: 100 mg Zolpidem Tartrate (Ambien) 5 mg PO HSPRN PRN PRN Reason: Insomnia
[2018-12-02] MEDS ORDERED: Lidocaine 2% PF 5 ML VIAL ONE (14:09)
[2018-12-02] MEDS ORDERED: Glycopyrrolate 0.2 MG/ML 5 ML SYRINGE ONE (14:09)
[2018-12-02] MEDS ORDERED: PROPOFOL 200 MG/20 ML VIAL ONE (14:09)
[2018-12-02] MEDS ORDERED: ePHEDrine 50 MG/ML VIAL ONE (14:09)
[2018-12-02] MEDS ORDERED: Rocuronium Bromide 10 MG/ML (10ML VIAL) ONE (14:09)
[2018-12-02] MEDS ORDERED: Dexamethasone 20 MG/5 ML VIAL ONE (14:09)
--- NOTE | 2018-12-02 23:43 | OP ---
DATE OF PROCEDURE: 12/02/2018 PREOPERATIVE DIAGNOSIS: Left ureteral stone. POSTOPERATIVE DIAGNOSIS: Incorporated left ureteral stone with mucosa overlying. ANESTHESIA: General with endotracheal tube. SPECIMENS: Urine from the left renal pelvis and stone. COMPLICATIONS: None other than the stone was actually incorporated in the mucosa of the wall at the UO. PROCEDURE: Cystoscopy, left retrograde pyelogram, and insertion of right ureteral stent 6 x 28, and holmium laser lithotripsy with ureteroscopy stone basketing. BLOOD LOSS: None. COMPLICATIONS: No complications. INDICATIONS OF PROCEDURE: The patient is a 63-year-old female, was admitted with renal colic and also had adnexal pathology, but ultimately was deemed not urgent and her stone had not moved over 3-day period from CAT scan at the [facility], so she was set up for definitive stone management after ensuring there was no persistence of infection. DESCRIPTION OF PROCEDURE: The patient was brought to the room by Anesthesia, laid on the table in supine position. After receiving general anesthetic, the legs were placed in lithotomy position with her left leg lower than the right leg, elevated, and her perineum was prepped and draped in sterile fashion. Using a 21-[place]izen [place] cystoscope and 30 degree lens, urethra was traversed and the bladder inspected. No lesions were noted. The left ureteral orifice was intubated with a little bit of difficulty because the wire did not initially want to pass, but the wire passed, and then the Pollack catheter passed easily over the wire up into the renal pelvis where hydronephrotic drip was noted and approximately 10 mL of yellow urine was extracted and sent for specimen. Measurements were then taken for 6 x 28 double-J and then a ureteral dilating balloon was placed over the wire to dilate the UO to maximum pressure of 12 mmHg. Then this was taken down, leaving the wire in place. The scope was broke apart, bladder drained and then removed, and the rigid ureteroscope was used to enter the orifice. This was significantly difficult as it was quite edematous with the bladder decompressed. After multiple attempts of placing a 2nd wire to follow it in, I had to fill the bladder up a little bit more to distend this area better. Then, I was able to put the wire and followed the wire easily beyond the obstructing UO which ultimately was that way because the stone was right there, but covered by mucosa, so I traversed the ureter up to the level of mid ureter and did not see any further stone, and then on extracting the ureteroscope, a blotch from the stone was noted, so the holmium laser fiber was actually used to identify where the stone was in the mucosa and then holmium laser lithotripsy was used to actually free the stone up and did not ultimately break up in multiple pieces, but rather was able to be freed and then basketed out and sent for specimen. Since there is only one stone at this point, no further fragments remained and the ureteroscope was removed. The cystoscope back fed over the wire and a 6 x 28 double-J was placed with a good coil visualized in the renal pelvis via fluoroscopy and a good coil in the bladder via cystoscopy with the string remaining, so the scope was broken apart and bladder drained and then removed carefully with the string and then attached to the patient's inner left thigh. The patient tolerated the procedure well and was then awakened and transferred to PACU in stable condition. Job ID: [id number]
[2018-12-03] MEDS: Piperacillin/Tazobactam 3.375 GM in Sodium Chloride 0.9% 100 ML IVPB SCH ×2 (00:30→06:53)
[2018-12-03] MEDS: Sodium Chloride 0.9% 1,000 ML IV SCH (03:25)
[2018-12-03] MEDS: Saccharomyces boulardii 250 MG CAP PO SCH (08:18)
[2018-12-03] MEDS: Tamsulosin HCl 0.4 MG CAP PO SCH (08:18)
[2018-12-03] MEDS: Enoxaparin Sodium 40 MG/0.4 ML SYRINGE SC SCH (08:19)
[2018-12-03 08:29] VITALS: BP 136/88; TEMP 98.1
--- NOTE | 2018-12-03 10:20 | PDOC.PN ---
- Subjective Encounter Start Date: 12/03/18 Encounter Start Time: 07:00 Patient seen and examined. No new complaints. No overnight events - Objective Resuscitation Status - Order Detail: 12/01/18 00:46 Resuscitation Status Routine Resuscitation Status: FULL: Full Resuscitation MAR Reviewed: Yes Vital Signs & Weight: Vital Signs (12 hours) Temp Pulse Resp BP Pulse Ox 12/03/18 08:00 98.1 F 73 18 136/88 97 Weight Weight 189 lb 9.561 oz I&O: 12/02/18 12/03/18 12/04/18 06:59 06:59 06:59 Intake Total 1300 Output Total 900 Balance -900 1300 Result Diagrams: 12/02/18 04:05 12/02/18 04:05 Phys Exam - Physical Examination Constitutional: NAD HEENT: PERRLA, moist MMs, sclera anicteric Neck: no JVD, supple Respiratory: no wheezing, no rales, no rhonchi Cardiovascular: RRR, no significant murmur, no rub Gastrointestinal: soft, non-tender, no distention, positive bowel sounds Musculoskeletal: no edema, pulses present Neurological: non-focal, normal sensation, moves all 4 limbs Lymphatic: no nodes Psychiatric: normal affect, A&O x 3 Skin: no rash, normal turgor Dx/Plan (1) Acute colitis Code(s): K52.9 - NONINFECTIVE GASTROENTERITIS AND COLITIS, UNSPECIFIED Status : Acute (2) Hydroureteronephrosis Code(s): N13.30 - UNSPECIFIED HYDRONEPHROSIS Status: Acute (3) Left ureteral calculus Code(s): N20.1 - CALCULUS OF URETER Status: Acute (4) Ovarian cyst, left Code(s): N83.202 - UNSPECIFIED OVARIAN CYST, LEFT SIDE Status: Acute (5) Obesity (BMI 30.0-34.9) Code(s): E66.9 - OBESITY, UNSPECIFIED Status: Chronic - Plan cont current plan of care * medication reviewed as below * symptomatic treatment * see discharge elaine. Review of Systems - Review of Systems ENT: negative: Ear Pain, Ear Discharge, Nose Pain, Nose Discharge, Nose Congestion, Mouth Pain, Mouth Swelling, Throat Pain, Throat Swelling, Other Respiratory: negative: Cough, Dry, Shortness of Breath, Hemoptysis, SOB with Excertion, Pleuritic Pain, Sputum, Wheezing Cardiovascular: negative: chest pain, palpitations, orthopnea, paroxysmal nocturnal dyspnea, edema, light headedness, other Gastrointestinal: negative: Nausea, Vomiting, Abdominal Pain, Diarrhea, Constipation, Melena, Hematochezia, Other Genitourinary: negative: Dysuria, Frequency, Incontinence, Hematuria, Retention , Other Musculoskeletal: negative: Neck Pain, Shoulder Pain, Arm Pain, Back Pain, Hand Pain, Leg Pain, Foot Pain, Other - Medications/Allergies Allergies/Adverse Reactions: Allergies Allergy/AdvReac Type Severity Reaction Status Date / Time No Known Allergies Allergy Unverified 12/01/18 00:50 Medications: Current Medications Acetaminophen (Tylenol) 650 mg PO Q4H PRN PRN Reason: Headache/Fever/Mild Pain (1-3) Artificial Tears (Tears Naturale) 2 drop EA EYE PRN PRN PRN Reason: Dry Eyes Bisacodyl (Dulcolax) 10 mg MO DAILYPRN PRN PRN Reason: Constipation Calcium Carbonate (Tums) 1,000 mg PO Q4H PRN PRN Reason: Heartburn or Indigestion Clonidine (Catapres) 0.1 mg PO Q4H PRN PRN Reason: Hypertension Enoxaparin Sodium (Lovenox) 40 mg SC 0900 [facility] Last Admin: 12/03/18 08:19 Dose: 40 mg Guaifenesin (Robitussin Sf) 200 mg PO Q4H PRN PRN Reason: Cough Hydralazine HCl (Apresoline) 10 mg SLOW IVP Q4H PRN PRN Reason: SBP > 180 and HR < 70 Piperacillin Sod/Tazobactam (Sod 3.375 gm/ Sodium Chloride) 100 mls @ 200 mls/ hr IVPB Q6HR [facility] Last Admin: 12/03/18 06:53 Dose: 100 mls Sodium Chloride (Normal Saline 0.9%) 1,000 mls @ 100 mls/hr IV .Q10H [facility] Last Admin: 12/03/18 03:25 Dose: 1,000 mls Loperamide HCl (Imodium) 2 mg PO PRN PRN PRN Reason: Diarrhea/Loose Stools Loratadine (Claritin) 10 mg PO DAILYPRN PRN PRN Reason: Sinus Symptoms Mineral Oil/White Petrolatum (Eucerin Cream) 0 gm TOP BIDPRN PRN PRN Reason: Dry Skin Morphine Sulfate (Morphine) 2 mg SLOW IVP Q2H PRN PRN Reason: Moderate to Severe Pain (6-10) Last Admin: 12/01/18 09:29 Dose: 2 mg Ondansetron HCl (Zofran Odt) 4 mg PO Q6H PRN PRN Reason: Nausea/Vomiting Ondansetron HCl (Zofran) 4 mg IVP Q6H PRN PRN Reason: Nausea/Vomiting Saccharomyces Boulardii (Florastor) 250 mg PO DAILY [facility] Last Admin: 12/03/18 08:18 Dose: 250 mg Senna/Docusate Sodium (Senokot S) 2 tab PO BID PRN PRN Reason: Constipation Sodium Chloride (Flush - Normal Saline) 10 ml IVF Q12HR [facility] Last Admin: 12/03/18 08:19 Dose: 10 ml Sodium Chloride (Flush - Normal Saline) 10 ml IVF PRN PRN PRN Reason: Saline Flush Sodium Chloride ([place] Nasal [place] 0.65%) 0 ml EA NARE QIDPRN PRN PRN Reason: Nasal Congestion Tamsulosin HCl (Flomax) 0.4 mg PO DAILY [facility] Last Admin: 12/03/18 08:18 Dose: 0.4 mg Throat Lozenges (Cepastat Lozenges) 1 lazaro PO Q2H PRN PRN Reason: Sore Throat Tramadol HCl (Ultram) 50 mg PO Q4H PRN PRN Reason: Mild-Moderate Pain (1-5) Last Admin: 12/01/18 16:42 Dose: 50 mg Tramadol HCl (Ultram) 100 mg PO Q4H PRN PRN Reason: Moderate to Severe Pain (6-10) Last Admin: 12/02/18 20:13 Dose: 100 mg Zolpidem Tartrate (Ambien) 5 mg PO HSPRN PRN PRN Reason: Insomnia Last Admin: 12/02/18 21:33 Dose: 5 mg
--- NOTE | 2018-12-03 14:16 | DIS ---
DATE OF ADMISSION: 12/01/2018 DATE OF DISCHARGE: 12/03/2018 PRIMARY CARE PHYSICIAN: [facility] call admission. DISCHARGE DISPOSITION: Home. PRIMARY DISCHARGE DIAGNOSES: 1. Acute colitis. 2. Left ureteral calculus, hydroureteronephrosis, status post stent placement, left ovarian cyst. SECONDARY DISCHARGE DIAGNOSES: Obesity with BMI 31. PRIMARY PROCEDURE/OPERATION: Cystoscopy and stent placement. RADIOLOGICAL INVESTIGATION: Pelvic ultrasound. Abdomen and pelvis CT scan. [id number] LABORATORY DATA: Hemoglobin 11.3, creatinine 0.90. LFT normal. Urinalysis suggestive of UTI. Urine culture negative. DISCHARGE MEDICATION: 1. Tylenol No. 3, one or two tablets q.6 hourly p.r.n. for pain. 2. Cipro 500 mg p.o. b.i.d. 3. Flomax 0.4 mg p.o. daily. CONTRAINDICATION: None. CODE STATUS: Full code. INPATIENT BIOLOGICAL PLANT OPERATOR: Dr. Martha Rodarte, Dr. Tk Beltre. TEST RESULTS PENDING ON DISCHARGE: None. ALLERGIES: NO KNOWN DRUG ALLERGIES. DISCHARGE PLAN: Posthospital, the patient will follow up with Dr. Martha Rodarte. HOSPITAL COURSE: A 63-year-old female, who was admitted for acute left-sided flank pain. In the emergency room, she had CT abdomen and pelvis which showed incidentally colitis as well as ovarian cyst. We did pelvic ultrasound and that confirmed a noncomplicated ovarian cyst and FRONT OFFICE ATTENDANT doctor, Dr. Tk Beltre evaluated this patient and recommended outpatient followup. The patient was not having any colitis symptoms and she did not have any diarrhea while in the hospital. We treated her with empiric antibiotic therapy with Zosyn while in the hospital. On discharge, we changed to Cipro. The patient underwent urologic procedure with cystoscopy and stent placement by Dr. Martha Rodarte. The patient was completely asymptomatic. Her pain was well controlled while in hospital. On discharge, we prescribed Tylenol No. 3 for pain and rest of medication was given by Dr. Martha Rodarte. The patient is seen and examined at bedside today. Please see my progress note from today for further detail. Job ID: [id number]
--- NOTE | 2018-12-04 19:39 | PRG ---
DATE OF SERVICE: 12/03/2018 SUBJECTIVE: The patient did well overnight. She is feeling significantly better. She has voided. She does have some stent discomfort, but she is otherwise feeling well. OBJECTIVE: VITAL SIGNS: Vitals have been stable. She has good urine output. GENERAL: She is resting comfortably in the bed, having eating breakfast and feels well by observation. LABORATORY DATA: All of her labs are good. ASSESSMENT AND PLAN: We have a 63-year-old female, status post ureteroscopy with stone extraction the day prior, who is doing well and ready for discharge with her stent with a string that can be pulled out in the office as well as how she can follow up with me for further stone prevention talks. Job ID: [id number]
[2018-12-05 16:10] LABS: CA Oxalate Dihydrate 60 % (.); CA Oxalate Monohydrate 35 % (.); Color Tan (.); Comment Note: (.)
== END 2018-12-03 13:30 | disposition home or self-care (01) | DRG 661 ==
LOC: ERS 22:04 → 3SE 12-01 01:50 → ONC 12-01 17:49
PROVIDERS: ADMIT Internal Medicine; ATTEND Internal Medicine
PROC: 0T778DZ Dilation of Left Ureter with Intraluminal Device, Via Natural or Artificial Opening Endoscopic (ICD-10-PCS; principal; 2018-12-02)
PROC: 0TC78ZZ Extirpation of Matter from Left Ureter, Via Natural or Artificial Opening Endoscopic (ICD-10-PCS; 2018-12-02)
PROC: BT1FYZZ Fluoroscopy of Left Kidney, Ureter and Bladder using Other Contrast (ICD-10-PCS; 2018-12-02)
DX: N13.2 Hydronephrosis with renal and ureteral calculous obstruction (principal); N83.202 Unspecified ovarian cyst, left side; E66.9 Obesity, unspecified; K52.9 Noninfective gastroenteritis and colitis, unspecified; Z98.51 Tubal ligation status; Z68.31 Body mass index [BMI] 31.0-31.9, adult
CPT/HCPCS: 36415; 74176; 74420; 76856; 80053; 81001; 81003; 81015; 82365; 83605; 83690; 85025; 87086; 88300; 96361; 96365; 96375; 96376; C1758; C1769; J1650; J1885; J2270; J2405; J2543; J3010; J3490; Q9961

== ENCOUNTER 2022-05-24 15:12 | Emergency (ER) | payer OTHER, SELFPAY ==
[2022-05-24 15:38] LABS: #Eosinphils 0.1 thou/uL (0.0-0.7); #Lymphocytes 1.7 thou/uL (1.20-3.40); #Monocytes 0.8 thou/uL (0.11-0.59); #Neutrophils 5.3 thou/uL (1.40-6.50); %Basophils 0.5 % (0.0-1.0); %Eosinophils 1.7 % (0.0-10.0); %Lymphocytes 21.6 % (21.0-51.0); %Monocytes 9.9 % (0.0-10.0); %Neutrophils 66.2 % (42.0-75.0); Hemoglobin 13.1 g/dL (12.0-16.0); Mean Corpuscular HGB CONC 33.8 g/dL (32.0-36.0); Mean Corpuscular Hemoglobin 32.9 pg (27.0-31.0); Mean Corpuscular Volume 97.3 fL (78.0-98.0); Mean Platelet Volume 7.3 fL (7.4-10.4); Platelet Count 309 thou/uL (130-400); RBC Distribution Width 11.6 % (11.5-14.5); Red Blood Cell (RBC) Count 3.98 mill/uL (4.20-5.40)
[2022-05-24 15:57] LABS: Bacteria/HPF 3+ HPF (None Seen); Bilirubin Negative (Negative); Blood, Urine 2+ (Negative); Calcium Oxalate Crystals 1+ HPF (None Seen); Clarity Extra Turbid (Clear); Glucose, Urine (Dipstick) Normal (Negative); Ketone, Urine Negative (Negative); Leukocyte 75 Leu/uL (Negative); Nitrite Negative (Negative); Protein, Urine (Dipstick) 100 mg/dL (Neg-Trace); RBC/HPF 0-3 HPF (0-3); Specific Gravity, Urine 1.029 (1.002-1.036); Squamous Epithelial 21-50 HPF (0-3)
[2022-05-24 16:05] LABS: ALT (SGPT) 26 U/L (8-55); AST (SGOT) 23 U/L (5-34); Alkaline Phosphatase 101 U/L (40-110); Anion Gap 13 mmol/L (10-20); BUN (Urea Nitrogen) 10 mg/dL (9.8-20.1); Bilirubin, Total 0.5 mg/dL (0.2-1.2); Calc. Creatinine Clearance 0 mL/min (70-130); Calcium 9.3 mg/dL (7.8-10.44); Carbon Dioxide 28 mmol/L (23-31); Chloride 101 mmol/L (98-107); Estimated GFR 93; Globulin 3.9 g/dL (2.4-3.5); Glucose 119 mg/dL (80-115); Potassium 3.4 mmol/L (3.5-5.1); Protein, Total 7.9 g/dL (5.8-8.1); Sodium 139 mmol/L (136-145)
[2022-05-24 20:18] LABS: Bacteria/HPF 4+ HPF (None Seen); Bilirubin Negative (Negative); Blood, Urine 2+ (Negative); Clarity Turbid (Clear); Glucose, Urine (Dipstick) Normal (Negative); Ketone, Urine 10 mg/dL (Negative); Leukocyte 75 Leu/uL (Negative); Mucous/LPF 1+ LPF (<2+); Nitrite Negative (Negative); Protein, Urine (Dipstick) 50 mg/dL (Neg-Trace); RBC/HPF 0-3 HPF (0-3); Renal Epithelial 0-3 HPF (None Seen); Specific Gravity, Urine 1.025 (1.002-1.036); Squamous Epithelial 21-50 HPF (0-3); pH, Urine 5.5 (5.0-9.0)
[2022-05-24] MEDS ORDERED: Morphine 4 MG/ML VIAL ONE (21:52)
== END 2022-05-24 22:57 | disposition home or self-care (01) ==
LOC: ERS 15:12
DX: K76.89 Other specified diseases of liver (principal)
CPT/HCPCS: 36415; 76705; 80053; 81003; 81015; 83605; 83690; 85025; 87040; 93005; 96374; J2270

== ENCOUNTER 2023-12-21 10:15 | Emergency (ER) | payer MEDICARE ==
[2023-12-21] MEDS ORDERED: Ketorolac Tromethamine 30 MG (1 mL) VIAL ONE (12:03)
[2023-12-21] MEDS ORDERED: Dexamethasone 10 MG/ML VIAL ONE (12:03)
== END 2023-12-21 12:25 | disposition home or self-care (01) ==
LOC: ERS 10:15
DX: S83.92XA Sprain of unspecified site of left knee, initial encounter (principal); M54.32 Sciatica, left side; X50.1XXA Overexertion from prolonged static or awkward postures, initial encounter
CPT/HCPCS: 96372; J1100; J1885